=== PATIENT | female | born 1990 | race Caucasian/White ===

== ENCOUNTER → 2018-07-20 | Outpatient (CLI) | payer OTHER ==
--- NOTE | 2018-07-20 15:13 | RADIOLOGY IMAGING REPORT ---
FACILITY: [facility] - [place] PATIENT NAME: Shellie Romero : 1990 MR: [id number] V: [id number] EXAM DATE: ORDERING PHYSICIAN: SARA GALE TECHNOLOGIST: [place] [facility] [place] Patient: Shellie Romero : 1990 Visit/Account:[id number] Date of Sevice: 07/20/2018 Exam type: FEMUR RIGHT History: L2-3 weeks ago. Right thigh pain along the lateral aspect Comparison: None. Findings: AP and lateral views the right femur demonstrate no evidence of acute fracture or dislocation. No ra diopaque soft tissue foreign body is seen. IMPRESSION: 1. No osteoarticular abnormality of the right femur is seen Report Dictated By: Veena Fontenot MD at 07/20/2018 3:08 PM Report E-Signed By: Veena Fontenot MD at 07/20/2018 3:09 PM WSN:[id number]
== END ==
LOC: RAD 13:00
PROVIDERS: ATTEND Emergency Medicine Sports Medicine
DX: M79.651 Pain in right thigh (principal); W19.XXXA Unspecified fall, initial encounter